=== PATIENT | male | born 1960 | race Caucasian/White ===

== ENCOUNTER 2017-03-31 21:43 | Emergency (ER) | payer BC ==
[~2017-03-31] VITALS: Ht 185.4 cm; Wt 86.2 kg
[2017-03-31] MEDS ORDERED: DiphenhydrAMINE 50mg/ml Inj IVP ONE (21:45)
[2017-03-31] MEDS ORDERED: Ketorolac 30mg Inj IV ONE (21:45)
[2017-03-31] MEDS ORDERED: Metoclopramide 10mg/2ml Inj IVP ONE (21:45)
[2017-03-31] MEDS ORDERED: HYDROmorphone 1mg/ml Carpuject IVP ONE (21:45)
[2017-03-31] MEDS ORDERED: VITAMINS (21:52)
[2017-03-31 22:00] VITALS: BP 144/73
[2017-03-31 22:35] LABS: EOSINOPHILS % (AUTO) 1.9 % (0.0-3.0); LYMPHOCYTES % (AUTO) 16.3 % (20.0-45.0); MEAN CORPUSCULAR HEMOGLOBIN 30.6 PG (27.0-31.0); MEAN CORPUSCULAR HGB CONC 31.9 G/DL (32.0-36.0); MEAN CORPUSCULAR VOLUME 96 FL (80-99); MEAN PLATELET VOLUME 7.8 FL (6.5-10.1); MONOCYTES % (AUTO) 6.1 % (1.0-10.0); NEUTROPHILS % (AUTO) 74.7 % (45.0-75.0); PLATELET COUNT 178 K/UL (150-450); RED BLOOD COUNT 5.38 M/UL (4.70-6.10); RED CELL DISTRIBUTION WIDTH 10.5 % (11.6-14.8); WHITE BLOOD COUNT 11.3 K/UL (4.8-10.8)
[2017-03-31 22:45] LABS: INR 1.3 (0.9-1.1); PROTHROMBIN TIME 13.3 SEC (9.30-11.50)
[2017-03-31 22:47] LABS: ANION GAP 8 mmol/L (5-15); CALCIUM 8.3 MG/DL (8.5-10.1); CARBON DIOXIDE 28 MMOL/L (21-32); CHLORIDE 106 MMOL/L (98-107); CREATININE 1.7 MG/DL (0.55-1.30); GLOMERULAR FILTRATION RATE 42.1 mL/min (>60); POTASSIUM 4.5 MMOL/L (3.5-5.1); SODIUM 142 MMOL/L (136-145)
[2017-03-31 22:51] LABS: ALANINE AMINOTRANSFERASE 43 U/L (12-78); ALBUMIN/GLOBULIN RATIO 1.2 (1.0-2.7); ASPARTATE AMINO TRANSFERASE 23 U/L (15-37); LIPASE 164 U/L (73-393); TOTAL PROTEIN 7.2 G/DL (6.4-8.2)
[2017-03-31 23:39] VITALS: BP 138/68
[2017-03-31 23:47] LABS: KETONES,URINE NEGATIVE (NEGATIVE); NITRITE,URINE NEGATIVE (NEGATIVE); PH,URINE 7 (4.5-8.0); PROTEIN,URINE 2+ (NEGATIVE); UROBILINOGEN,URINE 1 MG/DL (0.0-1.0)
[2017-03-31 23:58] LABS: APPEARANCE,URINE SLIGHTLY CLOUDY; LEUKOCYTE ESTERASE ,URINE 2+ (NEGATIVE)
[2017-04-01] LABS: BACTERIA,URINE FEW /HPF; RBC,URINE TNTC /HPF (0 - 0)
[2017-04-01] MEDS ORDERED: Hydromorphone 0.5mg/0.5ml inj IVP ONE (00:15)
[2017-04-01 01:42] LABS: ANION GAP 3 mmol/L (5-15); CALCIUM 7.8 MG/DL (8.5-10.1); CARBON DIOXIDE 32 MMOL/L (21-32); CHLORIDE 110 MMOL/L (98-107); CREATININE 1.8 MG/DL (0.55-1.30); GLOMERULAR FILTRATION RATE 39.4 mL/min (>60); POTASSIUM 4.3 MMOL/L (3.5-5.1); SODIUM 145 MMOL/L (136-145)
--- NOTE | 2017-04-01 04:50 | Emergency Room Report ---
History of Present Illness General Chief Complaint: Abdominal Pain Source: Patient, EMS Present Illness HPI The patient presents with severe right flank pain. It started earlier. He felt somewhat discomfort a couple days ago noticed a change in the color of his urine however, the pain became severe tonight. Radiates down into his groin on the right-hand side. He denies any fevers or chills. He's also had nausea. No pain medications were taken. EMS treated the patient with 4 Zofran and morphine 4. The pain is still severe at the moment. The patient has a history of renal stones when he was 16. He also has a history of having in his gallbladder removed more recently. This does not feel like his gallbladder pain. The patient denies any chest pain, shortness of breath, rashes, joint pain and headache dizziness, dysuria, fevers, dysuria, change in his bowels. Allergies: Coded Allergies: PENICILLINS (Verified Allergy, Unknown, 03/31/17) Patient History Past Medical History: see triage record Social History Narrative lives in [facility] Reviewed Nursing Documentation: PMH: Agreed, PSxH: Agreed Nursing Documentation-PMH Hx Gastrointestinal Problems: Yes - GALLSTONES,PANCREATITIS,KIDNEY STONE Review of Systems All Other Systems: negative except mentioned in HPI Physical Exam Vital Signs Date Time Temp Pulse Resp B/P (MAP) Pulse Ox O2 Delivery O2 Flow Rate FiO2 03/31/17 21:47 97.3 70 18 144/75 98 Room Air Sp02 EP Interpretation: reviewed, normal General Appearance: moderate distress Head: normocephalic Eyes: bilateral eye normal inspection, bilateral eye PERRL ENT: moist mucus membranes Neck: supple Respiratory: lungs clear, normal breath sounds Cardiovascular #1: regular rate, rhythm Cardiovascular #2: 2+ radial (R) Gastrointestinal: normal inspection, non tender, no mass, non-distended, decreased bowel sounds Genitourinary: no CVA tenderness Musculoskeletal: back normal, normal range of motion Neurologic: alert, oriented x3, grossly normal Psychiatric: other - in pain Skin: normal inspection, warm/dry Medical Decision Making Diagnostic Impression: Primary Impression: Right kidney stone Additional Impressions: Hydronephrosis Qualified Codes: N13.2 - Hydronephrosis with renal and ureteral calculous obstruction Renal insufficiency ER Course Patient presents with right flank pain history of renal stones. Differential includes pyonephritis, renal colic, aneurysm amongst others. The patient is in severe pain at this time and evaluation and treatment is emergent. The patient was evaluated with EKG, labs and ultrasound. This was treated with IV hydration and analgesia. After initial analgesia the patient has dramatic decrease in his pain. He states it's a 2/10. Ultrasound reveals obstruction and hydronephrosis. The labs are significant for renal insufficiency. The patient has no prior history of renal failure or renal problems aside from the stone when he was younger. The patient was treated with continued IV hydration. He started having increased pain. Because of this a CT of the abdomen was ordered. Despite IV hydration the patient's renal function is worsening. The pain is somewhat better after another dose of Dilaudid. CT reveals a 6X8 mm obstructing stone is fairly high up. There is also renal stranding. I decided to admit the patient at this time. The patient requests (insists on) transfer to [facility] which is where his children are. We are in the process of discussing his transfer. Presented to Dr. Ray, ED physician who will present to urologist. Patient accepted by Dr. Fior Ward, hospitalist. Stable for transfer via private auto (per request of patient) to [facility] to be directly admitted. Laboratory Tests Test 03/31/17 22:00 03/31/17 23:24 04/01/17 01:09 White Blood Count 11.3 K/UL (4.8-10.8) H Red Blood Count 5.38 M/UL (4.70-6.10) Hemoglobin 16.5 G/DL (14.2-18.0) Hematocrit 51.6 % (42.0-52.0) Mean Corpuscular Volume 96 FL (80-99) Mean Corpuscular Hemoglobin 30.6 PG (27.0-31.0) Mean Corpuscular Hemoglobin Concent 31.9 G/DL (32.0-36.0) L Red Cell Distribution Width 10.5 % (11.6-14.8) L Platelet Count 178 K/UL (150-450) Mean Platelet Volume 7.8 FL (6.5-10.1) Neutrophils (%) (Auto) 74.7 % (45.0-75.0) Lymphocytes (%) (Auto) 16.3 % (20.0-45.0) L Monocytes (%) (Auto) 6.1 % (1.0-10.0) Eosinophils (%) (Auto) 1.9 % (0.0-3.0) Basophils (%) (Auto) 1.0 % (0.0-2.0) Prothrombin Time 13.3 SEC (9.30-11.50) H Prothrombin Time INR 1.3 (0.9-1.1) H PTT 26 SEC (23-33) Sodium Level 142 MMOL/L (136-145) 145 MMOL/L (136-145) Potassium Level 4.5 MMOL/L (3.5-5.1) 4.3 MMOL/L (3.5-5.1) Chloride Level 106 MMOL/L (98-107) 110 MMOL/L (98-107) H Carbon Dioxide Level 28 MMOL/L (21-32) 32 MMOL/L (21-32) Anion Gap 8 mmol/L (5-15) 3 mmol/L (5-15) L Blood Urea Nitrogen 21 mg/dL (7-18) H 21 mg/dL (7-18) H Creatinine 1.7 MG/DL (0.55-1.30) H 1.8 MG/DL (0.55-1.30) H Estimate Glomerular Filtration Rate 42.1 mL/min (>60) 39.4 mL/min (>60) Glucose Level 142 MG/DL (74-106) H 105 MG/DL (74-106) Calcium Level 8.3 MG/DL (8.5-10.1) L 7.8 MG/DL (8.5-10.1) L Total Bilirubin 0.6 MG/DL (0.2-1.0) Aspartate Amino Transferase (AST) 23 U/L (15-37) Alanine Aminotransferase (ALT) 43 U/L (12-78) Alkaline Phosphatase 80 U/L (46-116) Total Protein 7.2 G/DL (6.4-8.2) Albumin 3.9 G/DL (3.4-5.0) Globulin 3.3 g/dL Albumin/Globulin Ratio 1.2 (1.0-2.7) Lipase 164 U/L (73-393) Urine Color Yellow Urine Appearance Slightly cloudy Urine pH 7 (4.5-8.0) Urine Specific Bradford 1.010 (1.005-1.035) Urine Protein 2+ (NEGATIVE) H Urine Glucose (UA) Negative (NEGATIVE) Urine Ketones Negative (NEGATIVE) Urine Occult Blood 5+ (NEGATIVE) H Urine Nitrite Negative (NEGATIVE) Urine Bilirubin Negative (NEGATIVE) Urine Urobilinogen 1 MG/DL (0.0-1.0) H Urine Leukocyte Esterase 2+ (NEGATIVE) H Urine RBC Tntc /HPF (0 - 0) H Urine WBC 5-10 /HPF (0 - 0) H Urine Squamous Epithelial Cells None /LPF (NONE/OCC) Urine Bacteria Few /HPF (NONE) EKG Diagnostic Results Rate: normal Rhythm: NSR ST Segments: no acute changes Rhythm Strip Diag. Results EP Interpretation: yes Rhythm: NSR, no PVC's, no ectopy CT/MRI/US Diagnostic Results CT/MRI/US Diagnostic Results #1: Imaging Test Ordered: US Impression R hydro CT/MRI/US Diagnostic Results #2: Imaging Test Ordered: CT abd pelvis Impression 6X8 mm obstructing stone R with hydro and stranding Last Vital Signs Date Time Temp Pulse Resp B/P (MAP) Pulse Ox O2 Delivery O2 Flow Rate FiO2 04/01/17 05:27 97.3 94 16 142/68 98 Room Air Status: improved Disposition: XFER SHT-TRM HOSP Condition: Serious - but stable for transfer via private auto Referrals: NON PHYSICIAN (PCP) Aries James M.D. Apr 01, 2017 04:50
[2017-04-01 05:27] VITALS: BP 142/68
--- NOTE | 2017-04-01 11:37 | Diagnostic Imaging Report ---
Indication: Abnormal renal function tests Technique: Grayscale and duplex images of the kidneys, retroperitoneum, and bladder were obtained. Comparison:None Findings: Right kidney measures 13.4 cm in length. Left kidney measures 12.4 cm in length. Both kidneys demonstrate normal echogenicity. There is mild right hydronephrosis. A 14 mm cyst is seen in the right kidney. Multiple cysts are seen in the left kidney, largest in the upper pole measuring 6.5 cm long axis dimension. Normal inferior vena cava. Bladder is normal. Impression: Mild right hydronephrosis, etiology not demonstrated Bilateral renal cysts.
--- NOTE | 2017-04-01 12:06 | Diagnostic Imaging Report ---
Indication: FLANK right lower quadrant pain, hydronephrosis on prior ultrasound Technique: Spiral acquisitions obtained through the abdomen and pelvis. No oral or IV contrast, per urinary stone protocol.. Multiplanar reconstructions were generated. Total dose length product 825 mGycm. CTDIvol(s) 13 mGy. Dose reduction achieved using automated exposure control Comparison: None Findings: A 6 x 5 mm calculus is seen in the proximal right ureter, approximately 4 cm distal to the ureterovesical junction. This results in mild to moderate hydronephrosis and a moderate amount of perinephric fat stranding. Lack of IV contrast limits assessment of the renal parenchyma. There is a 13 mm cyst in the interpolar region of the right kidney. There is a 7 cm cyst in the upper pole of the left kidney, as well as multiple smaller low-attenuation lesions which presumably corresponds to the multiple cysts described on recent renal sonogram. No left hydronephrosis or hydroureter. There is a punctate 2 mm calculus in the left lower pole collecting system, visible only on the coronal reconstructed images. No left ureteral calculi. No intrarenal calculi are seen on the right. Normal appendix. There are a few colonic diverticula. No evidence of diverticulitis. There are small bilateral inguinal hernias which contain only fat. No small bowel distention. No free or loculated intraperitoneal air or fluid. Distal esophagus, stomach, duodenum are unremarkable. Lack of IV contrast limits assessment of the other solid organs. The gallbladder is surgically absent. The liver bile ducts, pancreas are unremarkable. The spleen is enlarged, measuring 16 cm long axis dimension. The left adrenal demonstrates a 12 mm nodule which demonstrates -8 Hounsfield unit attenuation, consistent with a benign adenoma. No retroperitoneal or mesenteric mass or adenopathy. No pelvic mass or adenopathy. The included lung bases demonstrate posterior dependent atelectatic changes. The bones are unremarkable Impression: Positive for 6 x 5 mm proximal right ureteral calculus, resulting in mild to moderate hydronephrosis and perinephric fat stranding Nonobstructive left lower pole intrarenal calculus Splenomegaly Left adrenal benign adenoma Evidence of prior cholecystectomy Colonic diverticulosis. No evidence of diverticulitis Bilateral inguinal hernias which contain only fat Bilateral renal cysts This agrees with the preliminary interpretation provided overnight by [facility] teleradiology service. The CT scanner at [facility] is accredited by the [employer] and the scans are performed using protocols designed to limit radiation exposure to as low as reasonably achievable to attain images of sufficient resolution adequate for diagnostic evaluation.
--- NOTE | 2017-04-08 17:07 | Cardiology Report ---
APPROVED REPORT EKG Measurement Heart [id number] Normal sinus rhythm Normal ECG
== END 2017-04-01 05:27 | disposition home or self-care (01) ==
LOC: EDBD 21:43 → EMR 21:57
DX: N13.2 Hydronephrosis with renal and ureteral calculous obstruction (principal); R16.1 Splenomegaly, not elsewhere classified; K57.30 Diverticulosis of large intestine without perforation or abscess without bleeding; D35.02 Benign neoplasm of left adrenal gland; Z90.49 Acquired absence of other specified parts of digestive tract; N28.1 Cyst of kidney, acquired; K40.20 Bilateral inguinal hernia, without obstruction or gangrene, not specified as recurrent
CPT/HCPCS: 36415; 74176; 76775; 80048; 80053; 81003; 83690; 85025; 85610; 85730; 93005; 96361; 96374; 96375; 96376; 99285; J1170; J1200; J1885; J2765